=== PATIENT | female | born 1995 | race Caucasian/White ===

== ENCOUNTER 2024-12-09 16:48 | Emergency (ER) | payer BC, SELFPAY ==
[2024-12-09 16:48] VITALS: BP 110/83; PULSE 98; RESP 18; TEMP 36.7; O2SAT 100
--- NOTE | 2024-12-09 16:50 | ED.URI ---
HPI - URI/Sore Throat General Chief Complaint: Upper Respiratory Infection Stated Complaint: sore throat Time Seen by Provider: 12/09/24 16:49 Source: patient Mode of arrival: ambulatory Limitations: no limitations History of Present Illness HPI Narrative: Patient is a 29-year-old female with a sore throat for the past 3 days. MD elicited complaint: sore throat, rhinorrhea and nasal congestion Pertinent past history: other ( None) Onset (ago): day(s) ( 3) Consistency: constant Severity: moderate Pain scale (0-10): 5 Description of mucous: clear and watery Able to tolerate fluids by mouth: Yes Exacerbating factors: swallowing Relieving factors: NSAID Context: other ( patient having sore throat for the past 3 days getting worse) Associated symptoms: rhinorrhea, nasal congestion and sore throat Treatments prior to arrival: acetaminophen and ibuprofen Related Data Allergies Allergy/AdvReac Type Severity Reaction Status Date / Time No Known Allergies Allergy Verified 12/09/24 17:02 Review of Systems Review of Systems: All systems reviewed & are unremarkable except as noted in HPI and below Constitutional: Constitutional: Reports no additional constitutional complaints Eyes: Eyes: Reports no additional eye complaints ENT: Reports system reviewed and no additional complaints, except as documented Cardiovascular: Cardiovascular: Reports no additional cardiovascular complaints Respiratory: Respiratory: Reports no additional respiratory complaints Gastrointestinal: Gastrointestinal: Reports no additional gastrointestinal complaints Genitourinary: Genitourinary: Reports no additional female genitourinary complaints Musculoskeletal: Musculoskeletal: Reports no additional musculoskeletal complaints Integumentary/Breasts: Skin/Breast: Reports system reviewed and no additional complaints, except as docu Neurologic: Reports system reviewed and no additional complaints, except as documented Psychiatric: Psychiatric: Reports no additional psychiatric complaints Endocrine: Endocrine: Reports no additional endocrine complaints Hematologic/Lymphatic: Hematologic/Lymphatic: Reports no additional hematologic/lymphatic complaints Allergic/Immunologic: Allergic/Immunologic: Reports no additional allergic/immunologic complaints Exam Const: General: healthy appearing Nutritional Appearance: well nourished Orientation/consciousness: patient oriented x3 HENMT: Head: normal to inspection Ears: external ears normal Face/Nose/Sinus: Normal external nose present Other: posterior oropharynx is red and inflamed with some tonsillar hypertrophy and pus Eyes: Conjunctivae: conjunctivae normal Pupils: Equal, round and reactive pupils present EOM: EOMs intact bilaterally Neck: Neck: normal visual inspection Chest: Chest palpation & inspection: normal inspection of the chest Resp: Effort & Inspection: normal respiratory effort and not labored Auscultation: clear to auscultation bilaterally and no crackles Cardio: Rate: regular rate Rhythm: regular rhythm Heart sounds: no murmurs GI: Inspection: non-distended GI Palp: Yes Soft to palpation and No Tenderness to palpation present (GI) Auscultation: normal bowel sounds : General: Yes bladder normal to palpation Back/Spine/Pelvis: Back: no CVA tenderness Skin: General skin exam: normal color Rashes: no rashes Wounds: no wounds Neuro: General: patient oriented x3, moves all extremities, no meningeal signs, no focal motor deficits and CN's II-XI intact bilaterally Cranial nerves: Yes Nystagmus not present Speech: normal speech Gait exam (Neuro): Normal gait present Extrem: General: normal to inspection Psych: Mental Status: mental status grossly normal Affect: normal affect Attitude: cooperative Course Vital Signs Vital signs: Vital Signs Temperature 36.7 C 12/09/24 16:48 Pulse Rate 98 12/09/24 16:48 Respiratory Rate 18 12/09/24 16:48 Blood Pressure 110/83 12/09/24 16:48 Pulse Oximetry 100 12/09/24 16:48 Oxygen Delivery Room Air 12/09/24 16:48 Temperature 36.7 C 12/09/24 16:48 Pulse Rate 98 12/09/24 16:48 Respiratory Rate 18 12/09/24 16:48 Blood Pressure 110/83 12/09/24 16:48 Pulse Oximetry 100 12/09/24 17:03 Oxygen Delivery Room Air 12/09/24 17:03 MDM - URI/Sore Throat MDM Narrative Medical decision making narrative: patient is a 29-year-old female with a sore throat. We will do a strep and COVID panel. Augmentin. Lab Data Attestation: I reviewed the patient's lab results. Labs: Lab Results 12/09/24 Range/Units 16:57 Influenza A (RT-PCR) Negative (Negative) Influenza B (RT-PCR) Negative (Negative) RSV (RT-PCR) Negative (Negative) SARS-CoV-2 RNA (RT-PCR) Negative (Negative) Group A Strep (PCR) Detected A (Negative) Discharge Plan Discharge Clinical Impression: Acute streptococcal pharyngitis Patient Disposition: Home Condition: Stable Instructions: Antibiotic Form, Pharyngitis (ED) Patient Language: Japanese Prescriptions: New amoxicillin-pot clavulanate 875-125 mg tablet 1 tablet PO BID 10 Days Qty: 20 0RF Follow-up/Referrals: Kristi,GINA Saavedra [Primary Care Provider] - Time of Disposition: 17:37
--- NOTE | 2024-12-09 17:00 | PC.NURSE ---
covid culture sent to lab
[2024-12-09 17:03] VITALS: O2SAT 100
[2024-12-09 17:22] LABS: Strep Group A RT-PCR DETECTED (Negative)
[2024-12-09 17:36] LABS: Influenza A QL RT-PCR Negative (Negative); Influenza B QL RT-PCR Negative (Negative); RSV RNA, RT-PCR Negative (Negative); SARS-CoV-2 RNA PCR Negative (Negative)
== END 2024-12-09 18:02 | disposition home or self-care (01) ==
PROVIDERS: Emergency Provider Emergency Medicine; PCP Physician Assistant
DX: J02.0 Streptococcal pharyngitis (principal); Z79.1 Long term (current) use of non-steroidal anti-inflammatories (NSAID); Z20.822 Contact with and (suspected) exposure to COVID-19
CPT/HCPCS: 87637; 87651; 99283; A9270